=== PATIENT | male | born 1960 | race Caucasian/White ===

== ENCOUNTER 2018-12-17 09:05 | Observation (INO) ==
[2018-12-17 09:47] LABS: Baso # (Auto) 0.1 th/mm3 (0.0-0.2); Baso % (Auto) 0.9 % (0.0-2.0); Eos # (Auto) 0.2 th/mm3 (0.0-0.4); Eos % (Auto) 2.2 % (0.0-4.0); Hematocrit 47.2 % (39.0-51.0); Hemoglobin 16.6 gm/dL (13.0-17.0); Lymph # (Auto) 2.1 th/mm3 (1.0-4.8); Lymph % (Auto) 20.8 % (9.0-44.0); Mean Corpuscular HGB Conc 35.2 % (32.0-36.0); Mean Corpuscular Hemoglobin 32.1 pg (27.0-34.0); Mean Corpuscular Volume 91.3 fL (80.0-100.0); Mean Platelet Volume 8.4 fL (7.0-11.0); Mono # (Auto) 0.6 th/mm3 (0.0-0.9); Mono % (Auto) 5.8 % (0.0-8.0); Neut % (Auto) 70.3 % (16.0-70.0); Platelet Count 198 th/mm3 (150-450); Red Blood Count 5.17 mil/mm3 (4.50-5.90); Red Cell Distribution Width 13.8 % (11.6-17.2)
--- NOTE | 2018-12-17 09:50 | XR ---
EXAM DATE: 12/17/2018 9:44 AM EST AGE/SEX: 58 years / Male INDICATIONS: Chest pain. CLINICAL DATA: This is the patient's initial encounter. Patient reports that signs and symptoms have been present for 1 day and indicates a pain score of 4/10. MEDICAL/SURGICAL HISTORY: None. None. COMPARISON: No prior exams available for comparison. FINDINGS: The lungs are clear without infiltrate, nodule, or mass. There is no appreciable pleural effusion fo r technique. Heart and mediastinum are unremarkable. CONCLUSION: No acute cardiopulmonary disease. Electronically signed by: Geraldine Gregory MD Board Certified Radiologist 12/17/2018 9:49 AM EST
[2018-12-17 10:06] LABS: Activated Partial Thrombo Time 29.2 sec (23.4-31.7); Prothrombin Time 10.5 sec (9.8-11.6)
[2018-12-17] MEDS ORDERED: Aspirin 325 MG Tablet PO ONE (10:06)
[2018-12-17 10:09] LABS: Alanine Aminotransferase 28 U/L (12-78); Albumin 4.1 g/dL (3.4-5.0); Anion Gap 7 meq/L (5-15); Aspartate Aminotransferase 17 U/L (15-37); Blood Urea Nitrogen 7 mg/dL (7-18); Calcium 9.2 mg/dL (8.5-10.1); Chloride 105 meq/L (98-107); Glomerular Filtration Rate 85 mL/min (>89); Glucose,Random 121 mg/dL (74-106); Lipase 122 U/L (73-393); Sodium 139 meq/L (136-145)
[2018-12-17 10:15] LABS: Alkaline Phosphatase 123 U/L (45-117); Total Protein 7.7 g/dL (6.4-8.2)
--- NOTE | 2018-12-17 10:27 | ED ---
HPI General Chief Complaint: Chest Pain Stated Complaint: Chest Pain Time Seen by Provider: 12/17/18 09:40 Source: patient Mode of arrival: ambulatory Limitations: no limitations History of Present Illness HPI narrative: Patient is a 58-year-old male with history of hypertension, presents the emergency with complaints of chest pain. Patient reports that he woke up from sleep around 2 a.m. this morning with substernal chest pain. Patient reports that the pain felt a "ache to his chest" patient reports that the pain eventually went away around 330 to 4 PM. Patient reports that he felt diaphoretic with the symptoms, denies any nausea or vomiting with it. Reports that nothing makes his symptoms better or worse. Reports that he did call EMS who did an EKG and told him he was not having a heart attack. Patient reports that EMS want to bring him to the ER but patient told him that he would have his bring him to the ER. Patient reports that later this morning, he began to have return of chest pain. At that time, he called EMS and he was given 1 sublingual nitroglycerin which seemed to resolve his chest pain. Patient was concerned as his chest pain has improved after EMS did administer 1 SL nitroglycerin. Patient reports that he has no history of coronary artery disease or WI, only history of hypertension. Patient is a smoker, he smokes about 1-1/2 packs of cigarettes per day. Patient does have a positive family history of heart disease, his brother at 58 of a massive WI after he was told that his heart was perfectly fine. MD complaint: Reports chest pain STEMI Alert: No Onset (ago): hour(s) Duration: constant Onset: during rest Pain location: Reports substernal Severity: moderate Severity scale (1-10): 5 Quality: Reports aching Relieving factors: nitroglycerin Exacerbating factors: nothing Associated symptoms: Reports diaphoresis and dyspnea; Denies nausea and vomiting Treatments prior to arrival chest pain: Reports nitroglycerin; Denies none Related Data Home Medications Medication Instructions Recorded Confirmed losartan 100 mg PO DAILY 12/17/18 12/17/18 Allergies Allergy/AdvReac Type Severity Reaction Status Date / Time lisinopril AdvReac Intermediate nausea Verified 12/17/18 09:16 Review of Systems ROS: all other systems reviewed are negative [facility] Medical History Medical History HBP (high blood pressure) (Acute) Surgical History Surgical History History of appendectomy (Acute) Social History Social History Substance History: No History of Abuse Second Hand Smoke Exposure: Yes Smoking Status: Former smoker How Often Do You Have a Drink Containing Alcohol: 2 to 4 times a month Recent Travel in [facility] within the Last 8 Weeks: No Recent Out of Country Travel within the Last 8 Weeks: No Exam Narrative Exam Narrative: GENERAL: Mild distress SKIN: Focused skin assessment warm/dry. HEAD: Atraumatic. Normocephalic. EYES: Pupils equal and round. No scleral icterus. No injection or drainage. ENT: No nasal bleeding or discharge. Mucous membranes pink and moist. NECK: Trachea midline. No JVD. CARDIOVASCULAR: Regular rate and rhythm. No murmur appreciated. RESPIRATORY: No accessory muscle use. Clear to auscultation. Breath sounds equal bilaterally. GASTROINTESTINAL: Abdomen soft, non-tender, nondistended. Hepatic and splenic margins not palpable. MUSCULOSKELETAL: No obvious deformities. No clubbing. No cyanosis. No edema. NEUROLOGICAL: Awake and alert. No obvious cranial nerve deficits. Motor grossly within normal limits. Normal speech. PSYCHIATRIC: Appropriate mood and affect; insight and judgment normal. Course Initial Documented Vital Signs Temperature 97.9 F 12/17/18 09:12 Pulse Rate 83 12/17/18 09:12 Respiratory Rate 17 12/17/18 09:12 Blood Pressure 132/90 12/17/18 09:12 Pulse Oximetry 95 12/17/18 09:12 Last Documented Vital Signs Temperature 98.6 F 12/17/18 10:21 Pulse Rate 75 12/17/18 10:21 Respiratory Rate 18 12/17/18 10:21 Blood Pressure 136/91 H 12/17/18 10:21 Pulse Oximetry 95 12/17/18 10:21 Medical Decision Making MDM Narrative Medical decision making narrative: During the course of the patients emergency department visit, the patients history, examination, and differential diagnosis were reviewed with the patient. The patient was placed on a tablet technician with oximetry and frequent blood pressure monitoring. The patient had an IV access obtained and blood work sent for analysis. The patient was initially provided aspirin Patient reports that he was initially had still slight chest pain, on reevaluation, patient is currently chest pain-free, no nitroglycerin was given to him in the emergency room. Given his symptoms, a chest pain workup was initiated. cbc: wnl bmp: wnl trop less than 0.02 xray of chest: no acute cardiopulmnary disease Patient currently cp free - will obs to chest pain unit Medical Screen Exam Complete: Yes Emergency Medical Condition: Yes Differential Diagnosis Differential Diagnosis: ACS, arrythmia, anxiety, electrolyte abnormality Medical Records Medical records reviewed: Yes I reviewed the patient's medical records. Lab Data Result diagrams: 12/17/18 09:25 12/17/18 09:25 Lab Results 12/17/18 12/17/18 12/17/18 Range/Units 09:25 09:25 09:25 WBC 10.0 (4.0-11.0) th/mm3 RBC 5.17 (4.50-5.90) mil/mm3 Hgb 16.6 (13.0-17.0) gm/dL Hct 47.2 (39.0-51.0) % MCV 91.3 (80.0-100.0) fL MCH 32.1 (27.0-34.0) pg MCHC 35.2 (32.0-36.0) % RDW 13.8 (11.6-17.2) % Plt Count 198 (150-450) th/mm3 MPV 8.4 (7.0-11.0) fL Neut % (Auto) 70.3 H (16.0-70.0) % Lymph % (Auto) 20.8 (9.0-44.0) % Henry % (Auto) 5.8 (0.0-8.0) % Eos % (Auto) 2.2 (0.0-4.0) % Baso % (Auto) 0.9 (0.0-2.0) % Neut # (Auto) 7.0 (1.8-7.7) th/mm3 Lymph # (Auto) 2.1 (1.0-4.8) th/mm3 Henry # (Auto) 0.6 (0.0-0.9) th/mm3 Eos # (Auto) 0.2 (0.0-0.4) th/mm3 Baso # (Auto) 0.1 (0.0-0.2) th/mm3 WBC Differential . Differential Comment Auto diff final PT 10.5 (9.8-11.6) sec INR 1.0 Ratio APTT 29.2 (23.4-31.7) sec Sodium 139 (136-145) meq/L Potassium 4.0 (3.5-5.1) meq/L Chloride 105 (98-107) meq/L Carbon Dioxide 27.0 (21.0-32.0) meq/L Anion Gap 7 (5-15) meq/L BUN 7 (7-18) mg/dL Creatinine 0.92 (0.60-1.30) mg/dL Estimated GFR 85 L (>89) mL/min Random Glucose 121 H (74-106) mg/dL Calcium 9.2 (8.5-10.1) mg/dL Total Bilirubin 0.9 (0.2-1.0) mg/dL AST 17 (15-37) U/L ALT 28 (12-78) U/L Alkaline Phosphatase 123 H (45-117) U/L Troponin I Less than 0.02 L (0.02-0.05) ng/mL Total Protein 7.7 (6.4-8.2) g/dL Albumin 4.1 (3.4-5.0) g/dL Lipase 122 (73-393) U/L Imaging Data Radiologist's impression: Chest X-Ray 12/17/18 09:12 CONCLUSION: No acute cardiopulmonary disease. ECG Data EKG Prior to Arrival: Yes Attestation: I personally reviewed and interpreted this ECG as follows: Interpretation: EKG at 1009 shows normal sinus rhythm at 79 bpm 419, first- degree AV block Discharge Plan Discharge Disposition Patient Disposition: ED Admit(ED Internal Use Only) Discharge Condition Condition: Stable Discharge Order Discharge Orders: ED Use Only Admit Order (Routine); Ordered 12/17/18 Ordered By: Yoanna Holland Discharge Details Diagnosis: Chest pain Physicians Team ED Provider: Yoanna Holland Primary Care Provider: Primary Care Nisreen Humphrey Rxs /Orders / Referrals /Forms Prescriptions: No Action losartan 100 mg Tablet 100 mg PO DAILY RF: 0 Discharge Instructions Patient Printed Instructions: Chest Pain (ED) Status ED Status: Pending Admission
[2018-12-17] MEDS ORDERED: ALPRAZolam 0.25 MG Tablet PO PRN (12:06)
[2018-12-17] MEDS ORDERED: Aluminum/Magnesium/Simethacone Susp 30 ML UDC PO ONE (12:10)
[2018-12-17] MEDS ORDERED: Atropine/Scopolamine/Hyoscyamine/Phenobarb 10 ML Liq UDC PO ONE (12:11)
--- NOTE | 2018-12-17 12:17 | ECG ---
Date Performed: 12/17/2018 Time Performed: 10:09:46 PTAGE: 58 years EKG: Sinus rhythm WITH FIRST DEGREE AV BLOCK BORDERLINE LEFT AXIS DEVIATION INCOMPLETE RIGHT BUNDLE BRANCH BLOCK ABNOR MAL ECG NO PREVIOUS TRACING DOCTOR: Bryant Magana Interpretating Date/Time 12/17/2018 12:15:07
--- NOTE | 2018-12-17 12:19 | P.HPCA ---
History of Present Illness Primary Care Physician: No Primary Care Physician Chief Complaint: Chest pain History of Present Illness: This is a 58-year-old male with history of hypertension and tobacco abuse that presents [place] [facility] [place] [facility] to be evaluated for chest discomfort. He describes a central ache in his chest that began essentially 2 nights ago. States that prior to that he had had some chili from 1 days and a cheeseburger and then went to bed. A few hours later he woke up with this discomfort that has been there ever since. He has taken aspirin and ibuprofen without relief. He has not tried antacids. Found nothing in particular to worsen or improve his symptoms. [facility] was called to his house last evening and they want to transport him but he declined. He went to the [place] [facility] this morning and was told he had to come to the ED and agreed to be transported. States he was given sublingual nitroglycerin and aspirin in route but did not really notice any difference in symptoms. Denied nausea and shortness of breath. May been a little diaphoretic last evening. Cannot recall prior cardiac workup. States that his brother age 58 of an WI. Patient continues to smoke cigarettes. Past medical history hypertension and tobacco abuse. Denies hyperlipidemia, diabetes, known CAD. Social history patient smoked 1/2 pack of series daily for 40 years. Denies alcohol or illicit drug use. He is . Family history: Patient states his brother at age 58 of a myocardial infarction. - Diagnosis (1) Chest pain (2) Hypertension (3) Tobacco abuse Review of Systems General: Patient denies fevers, chills, and recent travel. HEENT: Patient denies headache, sore throat, difficulty swallowing. Cardiovascular: Has the chest discomfort as mentioned above. Denies sensation of heart beating rapidly or irregularly. No syncope. He was diaphoretic last evening. Respiratory: Denies shortness of breath or inspirational chest discomfort. Denies coughing wheezing or hemoptysis. GI: Patient denies nausea, vomiting, diarrhea, abdominal pain, bloody stools. Musculoskeletal: Patient denies joint pain or edema. Denies calf pain or edema. Neurovascular: Patient denies numbness, tingling, weakness in extremities. Denies headache. Endocrine: Denies polyuria and polydipsia. Hematologic: Denies easy bruising. Skin: Denies rash or itching. PMFSH - History History Provided By: Patient, [employer] / EMT - Medical History Medical History: Medical History (Last Reviewed 12/17/18 @ 10:44 by Hannah Bhatt RN) HBP (high blood pressure) - Surgical History Surgical History: Surgical History (Last Reviewed 12/17/18 @ 10:44 by Hannah Bhatt RN) History of appendectomy - Tobacco History Second Hand Smoke Exposure: Yes Tobacco Use In Past 30 Days: Yes Smoking Status: Former smoker - Alcohol History How Often Do You Have a Drink Containing Alcohol: 2 to 4 times a month - Substance Use History Substance History: No History of Abuse - Travel History Recent Travel in the [place] Within the Last 8 Weeks: No Recent Travel Out of the Country Within the Last 8 Weeks: No - Immunization History Tetanus Immunization: >5 Years Medications and Allergies Active Medications: Active Medications Alprazolam (Xanax) 0.25 mg PO Q8H PRN PRN Reason: ANXIETY Aspirin (Aspirin) 325 mg PO DAILY LINA Ondansetron HCl (Zofran Inj) 4 mg IV.PUSH Q6H PRN PRN Reason: NAUSEA Pantoprazole Sodium (Protonix) 40 mg PO DAILY LINA Sodium Chloride (Ns Flush) 2 ml IV.FLUSH UNSCH PRN PRN Reason: FLUSH AFTER USING IV ACCESS Last Admin: 12/17/18 10:20 Dose: 2 ml Sodium Chloride (Ns Flush) 2 ml IV.FLUSH BID LINA Sodium Chloride (Ns Flush) 2 ml IV.FLUSH PRN PRN PRN Reason: FLUSH AFTER USING IV ACCESS Allergies Allergy/AdvReac Type Severity Reaction Status Date / Time lisinopril AdvReac Intermediate nausea Verified 12/17/18 09:16 Home Medications Medication Instructions Recorded Confirmed Type losartan 100 mg PO DAILY 12/17/18 12/17/18 History Exam Vital signs: Vital Signs 12/17/18 09:12 12/17/18 09:18 12/17/18 10:21 Temperature 97.9 F 98.1 F 98.6 F Pulse Rate 97 H 85 75 Respiratory Rate 17 15 18 Blood Pressure 132/90 132/86 136/91 H Pulse Oximetry 96 94 L 95 Intake & Output 12/16/18 12/17/18 12/17/18 18:59 06:59 18:59 Weight 99.79 kg Narrative: GENERAL: This is a well-nourished, well-developed patient, in no apparent distress. Patient speaks in clear complete sentences. Patient is pleasant. HEENT: Head is atraumatic and normocephalic. Neck is supple without lymphadenopathy and trachea is midline. No JVD or carotid bruits. CARDIOVASCULAR: Regular rate and rhythm without murmurs, gallops, or rubs. RESPIRATORY: Clear to auscultation. Breath sounds equal bilaterally. No wheezes , rales, or rhonchi. Chest wall is nontender. No use of accessory muscles. GASTROINTESTINAL: Abdomen is nontender, nondistended. Abdomen soft. No obvious pulsatile mass or bruit. No CVA tenderness. Strong femoral pulses bilaterally. Normal bowel sounds in all quadrants. MUSCULOSKELETAL: Patient is moving upper and lower extremities freely. No calf tenderness or edema, no Homans sign. Strong pulses in upper and lower extremities. NEUROLOGICAL: Patient is alert and oriented. Cranial nerves 2-12 are grossly intact. No focal deficits and speech is clear. SKIN: No rash and turgor is normal. Results 12/17/18 09:25 12/17/18 09:25 Cardiac Enzymes 12/17/18 Range/Units 09:25 AST 17 (15-37) U/L Troponin I Less than 0.02 L (0.02-0.05) ng/mL Coagulation 12/17/18 Range/Units 09:25 PT 10.5 (9.8-11.6) sec APTT 29.2 (23.4-31.7) sec CBC 12/17/18 Range/Units 09:25 WBC 10.0 (4.0-11.0) th/mm3 RBC 5.17 (4.50-5.90) mil/mm3 Hgb 16.6 (13.0-17.0) gm/dL Hct 47.2 (39.0-51.0) % Plt Count 198 (150-450) th/mm3 Neut # (Auto) 7.0 (1.8-7.7) th/mm3 Lymph # (Auto) 2.1 (1.0-4.8) th/mm3 [place] # (Auto) 0.6 (0.0-0.9) th/mm3 Eos # (Auto) 0.2 (0.0-0.4) th/mm3 Baso # (Auto) 0.1 (0.0-0.2) th/mm3 Comprehensive Metabolic Panel 12/17/18 Range/Units 09:25 Sodium 139 (136-145) meq/L Potassium 4.0 (3.5-5.1) meq/L Chloride 105 (98-107) meq/L Carbon Dioxide 27.0 (21.0-32.0) meq/L BUN 7 (7-18) mg/dL Creatinine 0.92 (0.60-1.30) mg/dL Calcium 9.2 (8.5-10.1) mg/dL AST 17 (15-37) U/L ALT 28 (12-78) U/L Alkaline Phosphatase 123 H (45-117) U/L Total Protein 7.7 (6.4-8.2) g/dL Albumin 4.1 (3.4-5.0) g/dL Intake and Output 12/16/18 12/17/18 12/17/18 22:59 06:59 14:59 Other: Weight 99.79 kg Patient Weight 12/18/18 06:59 Weight 99.79 kg - Imaging and Cardiology Imaging: Impressions Chest X-Ray 12/17/18 09:12 CONCLUSION: No acute cardiopulmonary disease. EKG interpretations - EKG EKG shows: sinus rhythm (Initial EKG is sinus rhythm without significant ST segment depressions or elevations.) Caprini VTE Risk Assessment Caprini VTE Risk Assessment: No/Low Risk (score <= 1) Caprini Risk Assessment Model: Point Value = 1 Point Value = 2 Point Value = 3 Point Value = 5 Age 41-60 Minor surgery BMI > 25 kg/m2 Swollen legs Varicose veins or History of unexplained or recurrent spontaneous Oral contraceptives or hormone replacement Sepsis (< 1 month) Serious lung disease, including pneumonia (< 1 month) Abnormal pulmonary function Acute myocardial infarction Congestive heart failure (< 1 month) History of inflammatory bowel disease Medical patient at bed rest Age 61-74 Arthroscopic surgery Major open surgery (> 45 min) Laparoscopic surgery (> 45 min) Malignancy Confined to bed (> 72 hours) Immobilizing plaster cast Central venous access Age >= 75 History of VTE Family history of VTE Factor V Leiden Prothrombin [id number] Lupus anticoagulant Anticardiolipin antibodies Elevated serum homocysteine Heparin-induced thrombocytopenia Other congenital or acquired thrombophilia Stroke (< 1 month) Elective arthroplasty Hip, pelvis, or leg fracture Acute spinal cord injury (< 1 month) Prophylaxis Regimen: Total Risk Factor Score Risk Level Prophylaxis Regimen 0-1 Low Early ambulation 2 Moderate Order ONE of the following: *Sequential Compression Device (SCD) *Heparin 5000 units SQ BID 3-4 Higher Order ONE of the following medications: *Heparin 5000 units SQ TID *Enoxaparin/Lovenox 40 mg SQ daily (WT < 150 kg, CrCl > 30 mL/min) *Enoxaparin/Lovenox 30 mg SQ daily (WT < 150 kg, CrCl > 10-29 mL/min) *Enoxaparin/Lovenox 30 mg SQ BID (WT < 150 kg, CrCl > 30 mL/min) AND/OR *Sequential Compression Device (SCD) 5 or more Highest Order ONE of the following medications: *Heparin 5000 units SQ TID (Preferred with Epidurals) *Enoxaparin/Lovenox 40 mg SQ daily (WT < 150 kg, CrCl > 30 mL/min) *Enoxaparin/Lovenox 30 mg SQ daily (WT < 150 kg, CrCl > 10-29 mL/min) *Enoxaparin/Lovenox 30 mg SQ BID (WT < 150 kg, CrCl > 30 mL/min) AND *Sequential Compression Device (SCD) Assessment and Plan - Assessment (1) Chest pain Code(s): R07.9 - Chest pain, unspecified Status: Acute (2) Hypertension Code(s): I10 - Essential (primary) hypertension Status: Acute (3) Tobacco abuse Code(s): Z72.0 - Tobacco use Status: Acute - Plan * Chest pain: Patient will have serial cardiac enzymes and EKGs for ruling out purposes and will be seen by Dr. Jaimes of cardiology in the chest pain center. Will give GI cocktail to see if that helps with his symptoms. Patient will likely have stress testing in the morning after ruling out. Further plan pending the results of stress test. He will need follow-up with PCP. Return to ED for interval issues. * Hypertension: Continue medication. * Tobacco abuse: Patient counseled on the importance of smoking cessation. Patient is stable at this time. He is agreeable to this plan. (1) Chest pain Qualifiers: Chest pain type: unspecified Qualified Code(s): R07.9 - Chest pain, unspecified
[2018-12-17 14:25] LABS: Creatine Kinase 108 U/L (39-308)
[2018-12-17 14:38] LABS: Creatine Kinase 77 U/L (39-308)
[2018-12-17 14:41] LABS: Creatine Kinase MB 2.3 ng/mL (0.5-3.6)
[2018-12-17] MEDS ORDERED: Acetaminophen 500 MG Tablet PO PRN (15:36)
[2018-12-17 16:58] LABS: Creatine Kinase 120 U/L (39-308)
[2018-12-18 03:19] VITALS: RESP 18
[2018-12-18 07:55] VITALS: BP 121/75; PULSE 62; TEMP 98.3; O2SAT 95
--- NOTE | 2018-12-18 08:56 | ECG ---
Date Performed: 12/17/2018 Time Performed: 16:02:47 PTAGE: 58 years EKG: Sinus rhythm WITH FIRST DEGREE AV BLOCK MARKED LEFT AXIS DEVIATION INCOMPLETE RIGHT BUNDLE BRANCH BLOCK MINIMAL V OLTAGE CRITERIA FOR LVH, CONSIDER NORMAL VARIANT ABNORMAL ECG INTERPRETATION BASED ON A DEFAULT AGE O F 41 YEARS PREVIOUS TRACING : 12/17/2018 14.07 Since previous tracing, no significant change noted DOCTOR: Waldemar Cannon Interpretating Date/Time 12/18/2018 08:56:11
--- NOTE | 2018-12-18 08:57 | ECG ---
Date Performed: 12/17/2018 Time Performed: 14:07:05 PTAGE: 58 years EKG: Sinus rhythm WITH FIRST DEGREE AV BLOCK BORDERLINE LEFT AXIS DEVIATION ABNORMAL ECG INTERPRETATION BASED ON A DEF ANIA AGE OF 41 YEARS PREVIOUS TRACING : 12/17/2018 10.09 Since previous tracing, no significant change noted DOCTOR: Waldemar Cannon Interpretating Date/Time 12/18/2018 08:56:39
[2018-12-18] MEDS ORDERED: Aspirin 325 MG Tablet PO SCH (09:00)
--- NOTE | 2018-12-18 09:17 | P.PNCA ---
Subjective Interval history: Upon entering room, patient watching television. Angry regarding NPO status and stating "I expected this stress testing at 730." Due to anger and inappropriate attitude, he did not response to inquiry of overnight events. Medications and Allergies Active Medications: Active Medications Acetaminophen (Tylenol) 500 mg PO Q6H PRN PRN Reason: pain scale 1-5 Last Admin: 12/17/18 18:23 Dose: 500 mg Hydrocodone Bitart/Acetaminophen ([place]ket 7.5/325) 1 tab PO Q6H PRN PRN Reason: pain scale 6-10 Last Admin: 12/17/18 19:34 Dose: 1 tab Albuterol (Duoneb Neb (Prn)) 1 ampul NEB Q4HR NEB PRN PRN Reason: SHORTNESS OF BREATH/WHEEZING Alprazolam (Xanax) 0.25 mg PO Q8H PRN PRN Reason: ANXIETY Aspirin (Aspirin) 325 mg PO DAILY [facility] Clonidine HCl (Catapres) 0.1 mg PO Q6H PRN PRN Reason: SBP >165 OR DBP > 110 Losartan Potassium (Cozaar) 100 mg PO DAILY [facility] Last Admin: 12/17/18 14:31 Dose: 100 mg Ondansetron HCl (Zofran Inj) 4 mg IV.PUSH Q6H PRN PRN Reason: NAUSEA Pantoprazole Sodium (Protonix) 40 mg PO DAILY [facility] Last Admin: 12/17/18 14:31 Dose: 40 mg Sodium Chloride (Ns Flush) 2 ml IV.FLUSH BID [facility] Last Admin: 12/17/18 20:15 Dose: 2 ml Sodium Chloride (Ns Flush) 2 ml IV.FLUSH PRN PRN PRN Reason: FLUSH AFTER USING IV ACCESS Allergies Allergy/AdvReac Type Severity Reaction Status Date / Time lisinopril AdvReac Intermediate nausea Verified 12/17/18 09:16 Home Medications Medication Instructions Recorded Confirmed Type losartan 100 mg PO DAILY 12/17/18 12/17/18 History Physical Exam Vital signs: Vital Signs 12/17/18 09:18 12/17/18 10:21 12/17/18 14:16 Temperature 98.1 F 98.6 F 98.7 F Pulse Rate 85 75 68 Respiratory Rate 15 18 20 Blood Pressure 132/86 136/91 H 152/95 H Pulse Oximetry 94 L 95 95 12/17/18 14:50 12/17/18 16:06 12/17/18 19:00 Temperature 98.6 F Pulse Rate 70 62 Respiratory Rate 18 18 Blood Pressure 157/96 H Pulse Oximetry 95 12/17/18 20:00 12/17/18 21:02 12/17/18 23:41 Temperature 98.0 F 97.6 F Pulse Rate 88 78 Respiratory Rate 18 16 Blood Pressure 134/87 130/85 Pulse Oximetry 93 L 93 L 93 L 12/18/18 00:26 12/18/18 03:16 12/18/18 07:53 Temperature 98.2 F 98.3 F Pulse Rate 58 L 62 Respiratory Rate 16 18 18 Blood Pressure 117/72 121/75 Pulse Oximetry 94 L 95 Intake & Output 12/17/18 12/18/18 12/18/18 18:59 06:59 18:59 Intake Total 500 / 500 480 / 480 Balance 500 / 500 480 / 480 Weight 99.79 kg Intake: Oral 500 / 500 480 / 480 Other: # Voids 2 Narrative: male laying in bed watching TV. - Constitutional no acute distress - Routine Respiratory Exam Absent: accessory muscle use - Routine Neurological Exam Present: alert, oriented X3, moving all extremities - Routine Psychiatric Exam Absent: cooperative Results 12/17/18 09:25 12/17/18 09:25 Cardiac Enzymes 12/17/18 12/17/18 12/17/18 Range/Units 09:25 09:25 09:25 AST 17 (15-37) U/L CK-MB (CK-2) 2.3 (0.5-3.6) ng/mL Troponin I Less than 0.02 L (0.02-0.05) ng/mL B-Natriuretic Peptide 37 (0-100) pg/mL 12/17/18 12/17/18 Range/Units 13:50 16:10 AST (15-37) U/L CK-MB (CK-2) (0.5-3.6) ng/mL Troponin I Less than 0.02 L Less than 0.02 L (0.02-0.05) ng/mL B-Natriuretic Peptide (0-100) pg/mL Coagulation 12/17/18 12/17/18 Range/Units 09:25 09:25 PT 10.5 (9.8-11.6) sec APTT 29.2 (23.4-31.7) sec B-Natriuretic Peptide 37 (0-100) pg/mL CBC 12/17/18 Range/Units 09:25 WBC 10.0 (4.0-11.0) th/mm3 RBC 5.17 (4.50-5.90) mil/mm3 Hgb 16.6 (13.0-17.0) gm/dL Hct 47.2 (39.0-51.0) % Plt Count 198 (150-450) th/mm3 Neut # (Auto) 7.0 (1.8-7.7) th/mm3 Lymph # (Auto) 2.1 (1.0-4.8) th/mm3 Morrison # (Auto) 0.6 (0.0-0.9) th/mm3 Eos # (Auto) 0.2 (0.0-0.4) th/mm3 Baso # (Auto) 0.1 (0.0-0.2) th/mm3 Comprehensive Metabolic Panel 12/17/18 Range/Units 09:25 Sodium 139 (136-145) meq/L Potassium 4.0 (3.5-5.1) meq/L Chloride 105 (98-107) meq/L Carbon Dioxide 27.0 (21.0-32.0) meq/L BUN 7 (7-18) mg/dL Creatinine 0.92 (0.60-1.30) mg/dL Calcium 9.2 (8.5-10.1) mg/dL AST 17 (15-37) U/L ALT 28 (12-78) U/L Alkaline Phosphatase 123 H (45-117) U/L Total Protein 7.7 (6.4-8.2) g/dL Albumin 4.1 (3.4-5.0) g/dL Intake and Output 12/17/18 12/18/18 12/18/18 22:59 06:59 14:59 Intake Total 500 / 500 480 / 480 Balance 500 / 500 480 / 480 Intake: Oral 500 / 500 480 / 480 Other: # Voids 2 - Imaging and Cardiology Imaging: Impressions Chest X-Ray 12/17/18 09:12 CONCLUSION: No acute cardiopulmonary disease. Assessment and Plan - Assessment (1) Chest pain Code(s): R07.9 - Chest pain, unspecified Status: Acute Plan: Admitted to chest pain center. Previously seen and evaluated by Dr. Vanita Jaimes. ACS ruled out with 3 sets of EKGs and cardiac enzymes. Proceed with exercise stress test as previously recommended. Patient is agreeable to plan of care at this time. (2) Hypertension Code(s): I10 - Essential (primary) hypertension Status: Chronic Plan: Home medication previously resumed. (3) Tobacco abuse Code(s): Z72.0 - Tobacco use Status: Chronic Plan: Strongly encouraged and stressed the importance of tobacco cessation. Tobacco Free [place] program information will be provided upon discharge. - Plan * Chest pain: Patient will have serial cardiac enzymes and EKGs for ruling out purposes and will be seen by Dr. Jaimes of cardiology in the chest pain center. Will give GI cocktail to see if that helps with his symptoms. Patient will likely have stress testing in the morning after ruling out. Further plan pending the results of stress test. He will need follow-up with PCP. Return to ED for interval issues. * Hypertension: Continue medication. * Tobacco abuse: Patient counseled on the importance of smoking cessation. Patient is stable at this time. He is agreeable to this plan. (1) Chest pain Qualifiers: Chest pain type: unspecified Qualified Code(s): R07.9 - Chest pain, unspecified (2) Hypertension Qualifiers: Hypertension type: unspecified Qualified Code(s): I10 - Essential (primary) hypertension
--- NOTE | 2018-12-19 08:01 | TR ---
Date Performed: 12/18/2018 Time Performed: 09:38:45 DOCTOR: Vantia Jaimes DRUG LIST: CLINICAL HISTORY: CHEST PAIN REASON FOR TEST: REASON FOR ENDING: OBSERVATION: CONCLUSION: Brady protocol completed. Stopped sec to exceeding target heart rate and leg fatigue . Maximum LR=620 Max HR Achieved=87.0% Maximum YX=064/80 Total Exercise Time=7:33. No reprod chest d iscomfort. Upsloping st segments. Good exercise tolerance, jogging during all of stage 3. Normal bp r esponse. Recovery quick and unremarkable. COMMENTS: No ischemia
== END 2018-12-18 10:20 | disposition home or self-care (01) ==
LOC: NEPC 09:05 → NEDA 09:05 → NEPGCP 13:10
PROVIDERS: ADMIT Internal Medicine Interventional Cardiology; ATTEND Internal Medicine Interventional Cardiology
CPT/HCPCS: 71010; 71045; 80053; 82550; 82552; 83520; 83690; 83880; 84484; 85025; 85610; 85730; 93005; 93017; 99285; G0378